=== PATIENT | male | born 1985 | race Caucasian/White ===

== ENCOUNTER 2017-01-28 11:45 | Emergency (ER) | payer OTHER ==
[~2017-01-28] VITALS: Ht 182.9 cm; Wt 110.2 kg
[2017-01-28] MEDS ORDERED: BENADRYL25 MG PO (11:55)
[2017-01-28] MEDS ORDERED: IBUPROFEN600 MG PO (11:56)
[2017-01-28] MEDS ORDERED: AUGMENTIN 875-1 EACH PO (12:00)
== END 2017-01-28 12:03 | disposition home or self-care (01) ==
LOC: ED 11:45
DX: T63.441A Toxic effect of venom of bees, accidental (unintentional), initial encounter (principal); L03.114 Cellulitis of left upper limb; F17.200 Nicotine dependence, unspecified, uncomplicated
CPT/HCPCS: 99283